=== PATIENT | female | born 1965 | race Caucasian/White ===

== ENCOUNTER 2016-11-05 10:55 | Emergency (ER) | payer MEDICAID ==
[~2016-11-05] VITALS: Ht 165.1 cm; Wt 136.1 kg
[2016-11-05 11:28] VITALS: BP 142/66
== END 2016-11-05 11:55 | disposition home or self-care (01) ==
LOC: ER 11:02
DX: J20.9 Acute bronchitis, unspecified (principal)

== ENCOUNTER 2018-05-22 02:31 | Emergency (ER) | payer MEDICAID ==
[~2018-05-22] VITALS: Ht 162.6 cm; Wt 136.1 kg
[2018-05-22] MEDS ORDERED: CALCIUM CHLOR(10%) 100MG/ML 10ML SYRINGE IV ONE (02:44)
[2018-05-22] MEDS ORDERED: SODIUM BICARBONATE 8.4% INJ 50ML SYRINGE IV ONE (02:44)
[2018-05-22] MEDS ORDERED: EPINEPHrine HCL 1 MG/10 ML SYRG IV ONE (02:44)
[2018-05-22] MEDS ORDERED: DEXTROSE (50%) 50ML SYRG IV ONE (02:44)
== END 2018-05-22 02:44 | disposition expired ==
LOC: EDBD 02:31 → EDSEX 02:31 → ER 02:43
DX: I46.9 Cardiac arrest, cause unspecified (principal); I48.91 Unspecified atrial fibrillation; E11.9 Type 2 diabetes mellitus without complications; E78.5 Hyperlipidemia, unspecified; I10 Essential (primary) hypertension; E66.01 Morbid (severe) obesity due to excess calories; Z68.43 Body mass index [BMI] 50.0-59.9, adult
CPT/HCPCS: 31500; 92950; 99285; J0171; J7042